=== PATIENT | male | born 1960 | race Two or more races ===

== ENCOUNTER 2018-10-15 15:19 | Inpatient (IN) | payer OTHER ==
[~2018-10-15] VITALS: Ht 167.6 cm; Wt 85.8 kg
[2018-10-15] MEDS ORDERED: MORPHINE SULFATE 4 MG/ML CPJ (NOT FOR IM USE) IV STA (15:58)
[2018-10-15] MEDS ORDERED: ONDANSETRON HCL 4MG/2ML INJ IV STA (15:58)
[2018-10-15] MEDS ORDERED: ACETAMINOPHEN 325MG TABLET PO ONE (16:00)
[2018-10-15] MEDS ORDERED: VANCOMYCIN 1 G PREMIX 200 ML IV ONE (16:00)
[2018-10-15] MEDS ORDERED: PIPERACILLIN/TAZ 3.375G PREMIX 50 ML IV ONE (16:00)
[2018-10-15] MEDS ORDERED: SODIUM CHLORIDE 0.9% 1000ML BAG (SEPSIS BOLUS) IV ONE (16:00)
[2018-10-15] MEDS ORDERED: INSULIN REGULAR (HUMULIN R) UD 100 UNITS/ML SYR SUBCUT ONE ×2 (16:30→18:45)
[2018-10-15 17:22] LABS: CLARITY URINE CLEAR (CLEAR); COLOR URINE YELLOW (YELLOW); KETONES URINE NEGATIVE (NEGATIVE); LEUKOCYTE ESTERASE URINE NEGATIVE (NEGATIVE); NITRITE URINE NEGATIVE (NEGATIVE); OCCULT BLOOD URINE TRACE (NEGATIVE); PH URINE 6.5 (4.5-8.0); PROTEIN URINE NEGATIVE (NEGATIVE); SPECIFIC GRAVITY URINE 1.021 (1.005-1.030)
[2018-10-15 18:11] LABS: CHLORIDE 92 mEq/L (98-107)
[2018-10-15 18:29] LABS: INR 1.2
[2018-10-15 18:30] LABS: HEMATOCRIT. 30.1 % (42.0-52.0); HEMOGLOBIN. 10.5 g/dL (14.0-18.0); MEAN CORPUSCULAR HEMOGLOBIN 26.7 pg (28.0-32.0); MEAN CORPUSCULAR VOLUME 76.9 fL (80.0-94.0); MEAN PLATELET VOLUME 8.6 fl (7.4-10.4); PLATELET 110 x1000/uL (130-400); RED BLOOD CELL COUNT 3.92 mill/uL (4.7-6.1); RED CELL DISTRIBUTION WIDTH 17.3 % (11.6-14.6)
[2018-10-15] MEDS ORDERED: INSULIN REGULAR (HUMULIN R) 300UNITS/3ML SUBCUT NR (18:30)
[2018-10-15] MEDS ORDERED: POTASSIUM CHLORIDE 20MEQ TABLET SR PO ONE (18:45)
[2018-10-15] MEDS ORDERED: DEXTROSE 50% WATER 50ML SYRINGE IV PRN (19:15)
[2018-10-15] MEDS ORDERED: GUAIFENESIN 200MG/10ML SUGAR FREE UDC PO PRN (19:15)
[2018-10-15] MEDS ORDERED: NITROGLYCERIN 0.4MG TABLET SL SL PRN (19:15)
[2018-10-15] MEDS ORDERED: CLONIDINE 0.1MG TABLET PO PRN (19:15)
[2018-10-15] MEDS ORDERED: MAGNESIUM/ALUMINUM HYDROXIDE/SIMETHICONE 30ML UDC PO PRN (19:15)
[2018-10-15] MEDS ORDERED: ONDANSETRON HCL 4MG/2ML INJ IV PRN (19:15)
[2018-10-15] MEDS ORDERED: IPRATROPIUM/ALBUTEROL 0.5-3(2.5)MG/3ML NEB INH PRN (19:15)
[2018-10-15] MEDS ORDERED: TRAMADOL 50MG TABLET PO PRN (19:15)
[2018-10-15] MEDS ORDERED: DOCUSATE SODIUM 100MG CAPSULE PO PRN (19:15)
[2018-10-15] MEDS ORDERED: CEFEPIME 1,000 MG in DEXTROSE 5% WATER 50 ML IV SCH (20:30)
[2018-10-15 20:54] LABS: PLATELET ESTIMATE DECREASED
[2018-10-15 22:00] VITALS: BP_SYST 129; BP_SYST 142; BP_DIAS 79; BP_DIAS 83
[2018-10-15] MEDS ORDERED: INSULIN GLARGINE UD 100 UNITS/ML SYR SUBCUT SCH (22:00)
[2018-10-15] MEDS: SODIUM CHLORIDE 0.9% 1,000 ML IV SCH (23:00)
[2018-10-15] MEDS ORDERED: FILGRASTIM 300 MCG/ML VIAL SUBCUT SCH (23:00)
[2018-10-15] MEDS ORDERED: KCL 20MEQ/100ML PREMIX 100 ML IV NR (23:00)
[2018-10-15] MEDS: BLOOD SUGAR DIAGNOSTIC STRIP TEST SCH (23:00)
[2018-10-15] MEDS: INSULIN LISPRO 100 UNITS/ML SUBCUT SCH (23:00)
[2018-10-16] VITALS (12 sets, daily range): BP systolic 109–166; BP diastolic 58–86
[2018-10-16] MEDS ORDERED: INSULIN GLARGINE UD 100 UNITS/ML SYR SUBCUT SCH
[2018-10-16] MEDS: CEFEPIME 1,000 MG in DEXTROSE 5% WATER 50 ML IV SCH ×2 (01:12→12:32)
[2018-10-16] MEDS: VANCOMYCIN 1 G PREMIX 200 ML IV SCH ×3 (04:15→22:01)
[2018-10-16] MEDS ORDERED: FILGRASTIM-TBO 300 MCG/0.5 ML SYRINGE SQ SCH (05:00)
[2018-10-16] MEDS: MORPHINE SULFATE 4 MG/ML CPJ (NOT FOR IM USE) IV PRN ×3 (05:26→21:51)
[2018-10-16] MEDS: BLOOD SUGAR DIAGNOSTIC STRIP TEST SCH ×4 (08:20→21:36)
[2018-10-16] MEDS: POTASSIUM CHLORIDE 20MEQ TABLET SR PO SCH (09:20)
[2018-10-16] MEDS: FAMOTIDINE 20MG TABLET PO SCH ×2 (09:20→21:35)
[2018-10-16] MEDS: ASCORBIC ACID 500 MG TABLET PO SCH ×2 (09:20→21:35)
[2018-10-16] MEDS: ZINC SULFATE 220 MG ( 50 ) CAPSULE PO SCH (09:21)
[2018-10-16] MEDS: ENOXAPARIN 40MG/0.4ML SYR SUBCUT SCH (09:21)
[2018-10-16] MEDS: INSULIN LISPRO 100 UNITS/ML SUBCUT SCH ×4 (09:23→21:00)
[2018-10-16] MEDS: ACETAMINOPHEN 325MG TABLET PO PRN (10:42)
[2018-10-16 12:05] LABS: CHLORIDE 98 mEq/L (98-107)
[2018-10-16 12:08] LABS: HEMOGLOBIN 10.4 g/dL (14.0-18.0); MEAN CORPUSCULAR HEMOGLOBIN 26.5 pg (28.0-32.0); MEAN CORPUSCULAR VOLUME 76.7 fL (80.0-94.0); PLATELET 126 x1000/uL (130-400); RED BLOOD CELL COUNT 3.91 mill/uL (4.7-6.1); RED CELL DISTRIBUTION WIDTH 17.4 % (11.6-14.6)
[2018-10-16] MEDS ORDERED: POTASSIUM CHLORIDE 20MEQ TABLET SR PO SCH (12:45)
[2018-10-16] MEDS: SODIUM CHLORIDE 0.9% 1,000 ML IV SCH ×2 (18:01→19:00)
[2018-10-16] MEDS: ZOLPIDEM TARTRATE 5MG TABLET PO PRN (21:36)
[2018-10-16] MEDS: INSULIN GLARGINE UD 100 UNITS/ML SYR SUBCUT SCH (22:06)
[2018-10-17] VITALS (12 sets, daily range): BP systolic 104–149; BP diastolic 48–80
[2018-10-17] MEDS: SODIUM CHLORIDE 0.9% 1,000 ML IV SCH (05:00)
[2018-10-17] MEDS: VANCOMYCIN 1 G PREMIX 200 ML IV SCH (06:47)
[2018-10-17] MEDS: BLOOD SUGAR DIAGNOSTIC STRIP TEST SCH ×4 (07:27→21:20)
[2018-10-17] MEDS: ACETAMINOPHEN 325MG TABLET PO PRN ×2 (07:29→17:37)
[2018-10-17] MEDS: POTASSIUM CHLORIDE 20MEQ TABLET SR PO SCH (08:31)
[2018-10-17] MEDS: ZINC SULFATE 220 MG ( 50 ) CAPSULE PO SCH (08:31)
[2018-10-17] MEDS: FAMOTIDINE 20MG TABLET PO SCH ×2 (08:31→21:17)
[2018-10-17] MEDS: ASCORBIC ACID 500 MG TABLET PO SCH ×2 (08:31→21:17)
[2018-10-17] MEDS: MORPHINE SULFATE 4 MG/ML CPJ (NOT FOR IM USE) IV PRN ×2 (08:32→17:50)
[2018-10-17] MEDS: INSULIN LISPRO 100 UNITS/ML SUBCUT SCH ×4 (08:34→21:31)
[2018-10-17] MEDS: ENOXAPARIN 40MG/0.4ML SYR SUBCUT SCH (08:35)
[2018-10-17 09:07] LABS: HEMATOCRIT. 30.9 % (42.0-52.0); HEMOGLOBIN. 10.4 g/dL (14.0-18.0); MEAN CORPUSCULAR HEMOGLOBIN 26.3 pg (28.0-32.0); MEAN CORPUSCULAR VOLUME 77.8 fL (80.0-94.0); MEAN PLATELET VOLUME 8.5 fl (7.4-10.4); PLATELET 115 x1000/uL (130-400); RED BLOOD CELL COUNT 3.97 mill/uL (4.7-6.1); RED CELL DISTRIBUTION WIDTH 17.6 % (11.6-14.6)
[2018-10-17 09:10] LABS: CHLORIDE 101 mEq/L (98-107)
[2018-10-17] MEDS: CEFEPIME 1,000 MG in DEXTROSE 5% WATER 50 ML IV SCH ×4 (12:23→21:19)
[2018-10-17 13:53] LABS: NUCLEATED RED BLOOD CELLS 1 /100 WBC; PLATELET ESTIMATE SLIGHTLY DECREASED
[2018-10-17] MEDS: VANCOMYCIN 1250MG in DEXTROSE 5% WATER 250ML IV SCH ×2 (14:22→21:20)
[2018-10-17] MEDS ORDERED: FILGRASTIM-TBO 300 MCG/0.5 ML SYRINGE SQ SCH (21:00)
[2018-10-17] MEDS: ZOLPIDEM TARTRATE 5MG TABLET PO PRN (21:17)
[2018-10-17] MEDS: INSULIN GLARGINE UD 100 UNITS/ML SYR SUBCUT SCH (21:30)
[2018-10-18] VITALS (11 sets, daily range): BP systolic 108–155; BP diastolic 55–87
[2018-10-18] MEDS: VANCOMYCIN 1250MG in DEXTROSE 5% WATER 250ML IV SCH ×2 (05:50→14:38)
[2018-10-18] MEDS: BLOOD SUGAR DIAGNOSTIC STRIP TEST SCH ×4 (07:30→20:22)
[2018-10-18] MEDS: ENOXAPARIN 40MG/0.4ML SYR SUBCUT SCH (09:05)
[2018-10-18] MEDS: FAMOTIDINE 20MG TABLET PO SCH ×2 (09:05→20:22)
[2018-10-18] MEDS: POTASSIUM CHLORIDE 20MEQ TABLET SR PO SCH (09:05)
[2018-10-18] MEDS: ZINC SULFATE 220 MG ( 50 ) CAPSULE PO SCH (09:05)
[2018-10-18] MEDS: ASCORBIC ACID 500 MG TABLET PO SCH ×2 (09:05→20:22)
[2018-10-18] MEDS: INSULIN LISPRO 100 UNITS/ML SUBCUT SCH ×4 (09:11→20:32)
[2018-10-18] MEDS: MORPHINE SULFATE 4 MG/ML CPJ (NOT FOR IM USE) IV PRN ×2 (09:12→18:17)
[2018-10-18] MEDS: CEFEPIME 1,000 MG in DEXTROSE 5% WATER 50 ML IV SCH (13:21)
[2018-10-18 13:38] LABS: HEMATOCRIT. 29.6 % (42.0-52.0); HEMOGLOBIN. 10.1 g/dL (14.0-18.0); MEAN CORPUSCULAR HEMOGLOBIN 26.3 pg (28.0-32.0); MEAN CORPUSCULAR VOLUME 76.8 fL (80.0-94.0); MEAN PLATELET VOLUME 8.3 fl (7.4-10.4); PLATELET 136 x1000/uL (130-400); RED BLOOD CELL COUNT 3.85 mill/uL (4.7-6.1)
[2018-10-18 13:50] LABS: CHLORIDE 102 mEq/L (98-107)
[2018-10-18] MEDS: SODIUM CHLORIDE 0.9% 1,000 ML IV SCH (14:38)
[2018-10-18 16:53] LABS: PLATELET ESTIMATE NORMAL
[2018-10-18] MEDS ORDERED: POTASSIUM CHLORIDE 20MEQ TABLET SR PO NR (20:15)
== END 2018-10-18 21:09 | disposition short-term general hospital (02) | DRG 871 ==
LOC: ER 15:19 → 5EST 19:07 → ENRESERV 20:00 → 5EST 22:15
PROVIDERS: ADMIT Internal Medicine; ATTEND Internal Medicine
DX: A41.50 Gram-negative sepsis, unspecified (principal); E43 Unspecified severe protein-calorie malnutrition; G92 Toxic encephalopathy; E87.1 Hypo-osmolality and hyponatremia; C85.90 Non-Hodgkin lymphoma, unspecified, unspecified site; E87.6 Hypokalemia; R50.81 Fever presenting with conditions classified elsewhere; E83.51 Hypocalcemia; E11.65 Type 2 diabetes mellitus with hyperglycemia; D70.9 Neutropenia, unspecified; T45.1X5A Adverse effect of antineoplastic and immunosuppressive drugs, initial encounter; Z68.30 Body mass index [BMI] 30.0-30.9, adult; Y92.89 Other specified places as the place of occurrence of the external cause; Z79.84 Long term (current) use of oral hypoglycemic drugs
CPT/HCPCS: 36415; 71045; 80202; 82962; 83036; 83605; 84145; 84484; 85027; 87077; 87186; 93005; 93306; 93970; 99285; J0692; J1442; J1650; J1815; J2270; J2405; J2543; J3370; J3480; J7030; J7060